=== PATIENT | male | born 1955 | race Caucasian/White ===

== ENCOUNTER 2019-06-18 06:39 | Day surgery (SDC) | payer OTHER, BC ==
[2019-06-18] MEDS ORDERED: NA CHLORIDE 0.9% 1,000 ML ONE (06:43)
[2019-06-18] MEDS ORDERED: PROPOFOL 200 MG/20 ML VIAL IV ONE (07:13)
--- NOTE | 2019-06-18 08:54 | ENDO RPT ---
[address], [address] EGD PROCEDURE REPORT EXAM DATE: 06/18/2019 PATIENT NAME: Rob Hays MR#: [id number] BIRTHDATE: 1955 ATTENDING: Jered Wilson Dr STATUS: outpatient FACILITY MAINTENANCE SUPERVISOR: Tonie Ness RN and Luis Jasso RN INDICATIONS: The patient is a 63 yr old Male here for an EGD due to bloating, belching, dyspepsia, and GERD PROCEDURE PERFORMED: EGD with biopsy MEDICATIONS: Per Anesthesia. TOPICAL ANESTHETIC: none CONSENT: The patient understands the risks and benefits of the procedure and understands that these risks include, but are not limited to: sedation, allergic reaction, infection, perforation and/or bleeding. Alternative means of evaluation and treatment include, among others: physical exam, x-rays, and/or surgical intervention. The patient elects to proceed with this endoscopic procedure. DESCRIPTION OF PROCEDURE: During intra-op preparation period all mechanical medical equipment was checked for proper function. Hand hygiene and appropriate measures for infection prevention was taken. Procedure, possible complications, and alternatives including but not limited to the possibility of bleeding, perforation, tear, infection, sepsis, need for surgery, need for blood transfusion, and anesthesia related complications were explained to the patient. After the risks, benefits and alternatives of the procedure were thoroughly explained, Informed consent was verified, confirmed and timeout was successfully executed by the treatment team. The patient was placed in the left lateral position. The patient was anesthetized with topical anesthesia. Through the anesthetized oropharyngeal area, the scope was passed without any difficulty. The Pentax EG-[id number] ([id number]) endoscope was introduced through the mouth and advanced to the second portion of the duodenum. Retroflexed views revealed no abnormalities. The gastroscope was then slowly withdrawn and removed. Mild gastritis was found in the antrum. Multiple biopsies were obtained and sent to pathology. Multiple erosions were found in the antrum. Duodenitis was found in the bulb of the duodenum. ADVERSE EVENTS: There were no complications. IMPRESSIONS: 1. Mild gastritis in the antrum, s/p biopsies 2. Multiple (3) erosions in the antrum 3. Duodenitis in the bulb of the duodenum RECOMMENDATIONS: 1. await biopsy results 2. acid suppression therapy REPEAT EXAM: Jered Wilson Dr eSigned: Jered Wilson Dr 06/18/2019 8:53 AM cc: Derek Oneil CPT CODES: ICD9 CODES: PATIENT NAME: Rob Hays MR#: [id number]
--- NOTE | 2019-06-18 09:25 | ENDO RPT ---
[address], [address] COLONOSCOPY PROCEDURE REPORT EXAM DATE: 06/18/2019 PATIENT NAME: Rob Hays MR #: [id number] BIRTHDATE: 1955 ATTENDING: Jered Wilson Dr STATUS: outpatient CHANNELER OUTSOLE: Luis Jasso RN, Aleah Wilson, and Tonie Ness RN INDICATIONS: The patient is a 63 yr old Male here for a colonoscopy due to colon cancer screening PROCEDURE PERFORMED: Colonoscopy MEDICATIONS: Per Anesthesia. ESTIMATED BLOOD LOSS: None CONSENT: The patient understands the risks and benefits of the procedure and understands that these risks include, but are not limited to: sedation, allergic reaction, infection, perforation and/or bleeding. Alternative means of evaluation and treatment include, among others: physical exam, x-rays, and/or surgical intervention. The patient elects to proceed with this endoscopic procedure. DESCRIPTION OF PROCEDURE: During intra-op preparation period all mechanical medical equipment was checked for proper function. Hand hygiene and appropriate measures for infection prevention was taken. Procedure, possible complications, alternatives including, but not limited to possibility of bleeding, perforation, tear, infection, sepsis, need for surgery, need for blood transfusion, were explained to the patient. After the risks, benefits and alternatives of the procedure were thoroughly explained, Informed consent was verified, confirmed and timeout was successfully executed by the treatment team. The patient was placed in the left lateral position. A digital rectal exam was performed and revealed no abnormalities of the rectum. After appropriate level of anesthesia, the scope was passed. The EG-[id number] ([id number]) and [id number] ([id number]) endoscope was introduced through the anus and advanced to the cecum, which was identified by both the appendix and ileocecal valve. The quality of the prep was fair. The instrument was then slowly withdrawn as the colon was fully examined. Scope withdrawal time was 7 minutes. COLON FINDINGS: Mild diverticulosis was noted in the sigmoid colon. No bleeding was noted from the diverticulosis. Small internal hemorrhoids were found. Retroflexed views revealed small hemorrhoids. The scope was then completely withdrawn from the patient and the procedure terminated. ADVERSE EVENTS: There were no complications. IMPRESSIONS: 1. Mild diverticulosis in the sigmoid colon 2. Small internal hemorrhoids 3. Intubation to cecum RECOMMENDATIONS: 1. yearly hemoccult starting in 4 years 2. fiber rich diet RECALL: Return in 10 year(s) for Colonoscopy. Jered Wilson Dr eSigned: Jered Wilson Dr 06/18/2019 9:25 AM cc: Derek Oneil CPT CODES: ICD9 CODES: PATIENT NAME: Rob Hays Mildred MR#: [id number]
[2019-06-18 09:49] VITALS: TEMP 98.8
[2019-06-18 09:50] VITALS: O2SAT 95
[2019-06-18 09:51] VITALS: BP 147/81
== END 2019-06-18 09:58 | disposition home or self-care (01) ==
LOC: OR 06:39
PROVIDERS: ATTEND Internal Medicine Gastroenterology
PROC: 0DJD8ZZ Inspection of Lower Intestinal Tract, Via Natural or Artificial Opening Endoscopic (ICD-10-PCS; principal; 2019-06-18 08:15)
PROC: 0DB68ZX Excision of Stomach, Via Natural or Artificial Opening Endoscopic, Diagnostic (ICD-10-PCS; 2019-06-18 08:15)
DX: Z12.11 Encounter for screening for malignant neoplasm of colon (principal); K29.50 Unspecified chronic gastritis without bleeding; K25.9 Gastric ulcer, unspecified as acute or chronic, without hemorrhage or perforation; K21.9 Gastro-esophageal reflux disease without esophagitis; K29.80 Duodenitis without bleeding; K57.30 Diverticulosis of large intestine without perforation or abscess without bleeding; K64.8 Other hemorrhoids; I10 Essential (primary) hypertension; G47.30 Sleep apnea, unspecified; M10.9 Gout, unspecified; Z79.82 Long term (current) use of aspirin; Z82.49 Family history of ischemic heart disease and other diseases of the circulatory system
CPT/HCPCS: 36415; 88312; 82962; 88305; 43239; J2704; J7030; G0121